=== PATIENT | female | born 1935 | race Caucasian/White ===

== ENCOUNTER 2021-03-15 18:36 | Emergency (ER) | payer MEDICARE ==
[~2021-03-15] VITALS: Ht 162.6 cm; Wt 75.7 kg
[2021-03-15 20:58] LABS: APPEARANCE,URINE Clear (CLEAR); BILIRUBIN,URINE Negative (NEGATIVE); COLOR,URINE Yellow (YELLOW); GLUCOSE, URINE (UA) Negative (NEGATIVE); KETONES,URINE Negative (NEGATIVE); LEUKOCYTE ESTERASE ,URINE Negative (NEGATIVE); NITRATE,URINE Negative (NEGATIVE); OCCULT BLOOD,URINE Negative (NEGATIVE); PROTEIN,URINE Negative (NEGATIVE); UROBILINOGEN,URINE 0.2 mg/dL (0.2-1.0)
[2021-03-15 21:34] VITALS: BP 124/8
== END 2021-03-15 21:37 | disposition home or self-care (01) ==
LOC: EDH 18:36
DX: N36.8 Other specified disorders of urethra (principal); N95.2 Postmenopausal atrophic vaginitis; I10 Essential (primary) hypertension; Z88.0 Allergy status to penicillin; Z95.2 Presence of prosthetic heart valve
CPT/HCPCS: 81003